=== PATIENT | male | born 1965 | race Caucasian/White ===

== ENCOUNTER 2017-12-01 22:05 | Inpatient (IN) ==
[2017-12-02] MEDS ORDERED: ALBUTEROL/IPRATROPIUM 3 ML NEB RESP TX STA (00:11)
[2017-12-02] MEDS ORDERED: methylPREDNISolone SOD SUC 125 MG/2 ML VIAL IV STA (00:11)
[2017-12-02] MEDS ORDERED: PANTOPRAZOLE 40 MG VIAL IV STA (00:11)
[2017-12-02] MEDS ORDERED: METOCLOPRAMIDE 10 MG/2 ML VIAL IV STA (00:11)
[2017-12-02] MEDS ORDERED: ALUM/MAG/SIMETH/LIDO VISC 1:1 30 ML BOTTLE PO STA (00:11)
[2017-12-02 01:49] LABS: Troponin I Only < 0.015 NG/ML (0.00-0.045)
[2017-12-02] MEDS ORDERED: FUROSEMIDE 40 MG/4 ML VIAL IV STA (02:03)
[2017-12-02] MEDS ORDERED: ONDANSETRON 4 MG/2 ML VIAL IV PRN (05:03)
[2017-12-02] MEDS ORDERED: ACETAMINOPHEN 325 MG TABLET PO PRN (05:03)
[2017-12-02] MEDS ORDERED: ALBUTEROL/IPRATROPIUM 3 ML NEB RESP TX PRN (05:10)
[2017-12-02] MEDS: SODIUM CHLORIDE 0.9% 1,000 ML IV SCH ×2 (05:58→21:02)
[2017-12-02] MEDS: MORPHINE 4 MG/1 ML VIAL IV PRN ×3 (05:59→17:45)
[2017-12-02 07:53] LABS: INR 3.2
[2017-12-02 07:59] LABS: PT Patient Result 32.8 SECS
[2017-12-02] MEDS: VENLAFAXINE 100 MG TABLET PO SCH (08:18)
[2017-12-02] MEDS: ARIPiprazole 10 MG TABLET PO SCH (08:18)
[2017-12-02] MEDS ORDERED: ENOXAPARIN 40 MG/0.4 ML SYRINGE SUBCUT SCH (09:00)
[2017-12-02] MEDS: methylPREDNISolone SOD SUC 125 MG/2 ML VIAL IV SCH ×2 (09:38→17:29)
[2017-12-02] MEDS: PANTOPRAZOLE 40 MG VIAL IV SCH ×2 (09:39→21:00)
[2017-12-02] MEDS: LEVOFLOXACIN INJ 750 MG in PREMIX 1 EACH IV SCH (09:42)
[2017-12-02] MEDS ORDERED: WARFARIN 5 MG TABLET PO SCH (18:00)
[2017-12-02] MEDS: TOPIRAMATE 25 MG TABLET PO SCH (21:03)
[2017-12-02] MEDS: DOXEPIN 100 MG CAPSULE PO SCH (21:04)
[2017-12-02] MEDS: GABAPENTIN 400 MG CAPSULE PO SCH (21:04)
[2017-12-03] MEDS: methylPREDNISolone SOD SUC 125 MG/2 ML VIAL IV SCH ×3 (00:50→16:17)
[2017-12-03] MEDS: MORPHINE 4 MG/1 ML VIAL IV PRN ×4 (04:23→21:54)
[2017-12-03 06:54] LABS: Basophils % 0.2 % (0.0-0.8); Hematocrit 48.6 VOL% (42.0-52.0); Immature Granulocytes % 0.6 %; Immature Granulocytes Absolute 0.07 #; Lymphocytes % 8.5 % (21.2-54.2); Mean Corpuscular HGB Conc 32.9 GM/DL (32-36); Mean Corpuscular Hemoglobin 29 PG (27-34); Mean Corpuscular Volume 87.1 FL (87-102); Mean Platelet Volume 9.1 FL (9.6-12.0); Monocytes # 0.2 10*3/uL (0.11-0.8); Monocytes % 1.5 % (1.7-12.7); Neutrophils # 10.9 10*3/uL (1.4-7.4); Neutrophils % 89.2 % (38.7-73.9); Platelet Count 289 T/CUMM (130-400); Red Blood Count 5.58 MC/CUMM (3.8-5.5); Red Cell Distribution Width 18.5 % (9.3-17.3); White Blood Count 12.2 T/CUMM (4-12)
[2017-12-03 07:14] LABS: INR 3.1
[2017-12-03 07:15] LABS: PT Patient Result 31.4 SECS; Partial Thromboplastin Time 44.8 SECS (0-40)
[2017-12-03 07:17] LABS: Calcium 8.8 MG/DL (8.5-10.1); Osmolality,Calculated 276.5 MOS/KG (273-304); Potassium 4.2 MMOL/L (3.5-5.1)
[2017-12-03] MEDS: PANTOPRAZOLE 40 MG VIAL IV SCH ×2 (09:54→21:08)
[2017-12-03] MEDS: VENLAFAXINE 100 MG TABLET PO SCH (09:54)
[2017-12-03] MEDS: ARIPiprazole 10 MG TABLET PO SCH (09:54)
[2017-12-03] MEDS: LEVOFLOXACIN INJ 750 MG in PREMIX 1 EACH IV SCH (09:54)
[2017-12-03] MEDS: SODIUM CHLORIDE 0.9% 1,000 ML IV SCH (11:23)
[2017-12-03] MEDS: MUPIROCIN 2% OINT 22 GM TUBE TOP SCH (21:07)
[2017-12-03] MEDS: GABAPENTIN 400 MG CAPSULE PO SCH (21:08)
[2017-12-03] MEDS: TOPIRAMATE 25 MG TABLET PO SCH (21:09)
[2017-12-03] MEDS: DOXEPIN 100 MG CAPSULE PO SCH (21:09)
[2017-12-04] MEDS: methylPREDNISolone SOD SUC 125 MG/2 ML VIAL IV SCH ×2 (01:25→08:23)
[2017-12-04] MEDS: SODIUM CHLORIDE 0.9% 1,000 ML IV SCH ×2 (01:30→18:11)
[2017-12-04 07:28] LABS: PT Patient Result 30.5 SECS
[2017-12-04 07:45] LABS: ABG Base Excess 0.2 MMOL/L (-2.5-2.5); ABG HCO3 24.4 MMOL/L (20-26); ABG Oxygen Saturation 91.2 % (95-100); ABG PCO2 42.5 MM HG (35-48); ABG PH 7.385 (7.35-7.45); ABG PO2 62.1 MM HG (80-95); ABG TCO2 21.3 MMOL/L (23-27); Allen Test Positive; Pt O2 Delivery Device Room Air
[2017-12-04] MEDS: MORPHINE 4 MG/1 ML VIAL IV PRN ×2 (08:14→12:47)
[2017-12-04] MEDS: PANTOPRAZOLE 40 MG VIAL IV SCH ×2 (08:18→22:19)
[2017-12-04] MEDS: LEVOFLOXACIN INJ 750 MG in PREMIX 1 EACH IV SCH (08:25)
[2017-12-04] MEDS: ARIPiprazole 10 MG TABLET PO SCH ×2 (08:29→16:51)
[2017-12-04] MEDS: MUPIROCIN 2% OINT 22 GM TUBE TOP SCH ×2 (08:29→20:59)
[2017-12-04] MEDS: VENLAFAXINE 100 MG TABLET PO SCH ×2 (08:29→16:51)
[2017-12-04] MEDS ORDERED: PHYTONADIONE 5 MG/5 ML ORAL.SYR PO ONE (10:30)
[2017-12-04] MEDS: clonazePAM 0.5 MG TABLET PO PRN (15:36)
[2017-12-04] MEDS: POTASSIUM CHLORIDE INJ 30 MEQ in DEXTROSE 5% NACL 0.45% 1,000 ML IV SCH (16:52)
[2017-12-04] MEDS: GABAPENTIN 400 MG CAPSULE PO SCH (20:56)
[2017-12-04] MEDS: DOXEPIN 100 MG CAPSULE PO SCH (20:56)
[2017-12-04] MEDS: TOPIRAMATE 25 MG TABLET PO SCH (20:56)
[2017-12-05] MEDS: POTASSIUM CHLORIDE INJ 30 MEQ in DEXTROSE 5% NACL 0.45% 1,000 ML IV SCH (02:25)
[2017-12-05 04:17] LABS: INR 1.4; PT Patient Result 14.7 SECS
[2017-12-05 04:35] LABS: Calcium 8.4 MG/DL (8.5-10.1); Osmolality,Calculated 279.4 MOS/KG (273-304)
[2017-12-05] MEDS: ARIPiprazole 10 MG TABLET PO SCH (09:24)
[2017-12-05] MEDS: VENLAFAXINE 100 MG TABLET PO SCH (09:24)
[2017-12-05] MEDS: ENOXAPARIN 40 MG/0.4 ML SYRINGE SUBCUT SCH (09:25)
[2017-12-05] MEDS: NYSTATIN 500,000 UNIT/5 ML UDCUP SWISH/SWAL SCH ×4 (09:25→21:16)
[2017-12-05] MEDS: clonazePAM 0.5 MG TABLET PO PRN ×2 (09:27→21:22)
[2017-12-05] MEDS: PANTOPRAZOLE 40 MG VIAL IV SCH ×2 (09:29→22:27)
[2017-12-05] MEDS: LEVOFLOXACIN INJ 750 MG in PREMIX 1 EACH IV SCH (09:31)
[2017-12-05] MEDS: MUPIROCIN 2% OINT 22 GM TUBE TOP SCH ×2 (09:33→21:17)
[2017-12-05] MEDS: DEXTROSE 5% NACL 0.45% 1,000 ML IV SCH ×2 (11:47→22:27)
[2017-12-05] MEDS: ALUMINUM/MAGNES/SIMETH MAX STR 30 ML UDCUP PO PRN ×2 (12:55→17:14)
[2017-12-05] MEDS: DOXEPIN 100 MG CAPSULE PO SCH (21:16)
[2017-12-05] MEDS: GABAPENTIN 400 MG CAPSULE PO SCH (21:17)
[2017-12-05] MEDS: TOPIRAMATE 25 MG TABLET PO SCH (21:17)
[2017-12-06 05:09] LABS: Basophils % 0.1 % (0.0-0.8); Hematocrit 49.6 VOL% (42.0-52.0); Hemoglobin 16.5 GM/DL (14.0-18.0); Immature Granulocytes % 0.8 %; Immature Granulocytes Absolute 0.06 #; Lymphocytes # 2.2 10*3/uL (1.4-4.0); Lymphocytes % 28.9 % (21.2-54.2); Mean Corpuscular HGB Conc 33.3 GM/DL (32-36); Mean Corpuscular Hemoglobin 29 PG (27-34); Mean Corpuscular Volume 86.9 FL (87-102); Mean Platelet Volume 9.8 FL (9.6-12.0); Monocytes # 0.4 10*3/uL (0.11-0.8); Monocytes % 5.2 % (1.7-12.7); Platelet Count 300 T/CUMM (130-400); Red Blood Count 5.71 MC/CUMM (3.8-5.5); Red Cell Distribution Width 18.7 % (9.3-17.3); White Blood Count 7.6 T/CUMM (4-12)
[2017-12-06 05:28] LABS: INR 1.1; PT Patient Result 11.9 SECS
[2017-12-06 05:33] LABS: Calcium 8.3 MG/DL (8.5-10.1); Osmolality,Calculated 280.3 MOS/KG (273-304); Potassium 3.6 MMOL/L (3.5-5.1)
[2017-12-06] MEDS: ARIPiprazole 10 MG TABLET PO SCH (08:11)
[2017-12-06] MEDS: VENLAFAXINE 100 MG TABLET PO SCH (08:11)
[2017-12-06] MEDS: clonazePAM 0.5 MG TABLET PO PRN ×2 (08:11→20:31)
[2017-12-06] MEDS: PANTOPRAZOLE 40 MG VIAL IV SCH ×2 (08:12→22:26)
[2017-12-06] MEDS: NYSTATIN 500,000 UNIT/5 ML UDCUP SWISH/SWAL SCH ×4 (08:12→20:31)
[2017-12-06] MEDS: LEVOFLOXACIN INJ 750 MG in PREMIX 1 EACH IV SCH (08:15)
[2017-12-06] MEDS: ALUMINUM/MAGNES/SIMETH MAX STR 30 ML UDCUP PO PRN (08:18)
[2017-12-06] MEDS: MUPIROCIN 2% OINT 22 GM TUBE TOP SCH ×2 (08:20→20:35)
[2017-12-06] MEDS: ENOXAPARIN 40 MG/0.4 ML SYRINGE SUBCUT SCH (08:30)
[2017-12-06] MEDS: DEXTROSE 5% NACL 0.45% 1,000 ML IV SCH ×3 (09:55→21:55)
[2017-12-06] MEDS: DOXEPIN 100 MG CAPSULE PO SCH (20:32)
[2017-12-06] MEDS: TOPIRAMATE 25 MG TABLET PO SCH (20:32)
[2017-12-06] MEDS: GABAPENTIN 400 MG CAPSULE PO SCH (20:32)
[2017-12-07] MEDS: LEVOFLOXACIN INJ 750 MG in PREMIX 1 EACH IV SCH (09:54)
[2017-12-07] MEDS: ENOXAPARIN 40 MG/0.4 ML SYRINGE SUBCUT SCH (09:54)
[2017-12-07] MEDS: ARIPiprazole 10 MG TABLET PO SCH (09:55)
[2017-12-07] MEDS: PANTOPRAZOLE 40 MG VIAL IV SCH ×2 (09:55→20:40)
[2017-12-07] MEDS: clonazePAM 0.5 MG TABLET PO PRN ×2 (09:55→20:40)
[2017-12-07] MEDS: NYSTATIN 500,000 UNIT/5 ML UDCUP SWISH/SWAL SCH ×4 (09:56→20:38)
[2017-12-07] MEDS: VENLAFAXINE 100 MG TABLET PO SCH (09:56)
[2017-12-07] MEDS: DEXTROSE 5% NACL 0.45% 1,000 ML IV SCH ×2 (10:03→17:51)
[2017-12-07] MEDS: MUPIROCIN 2% OINT 22 GM TUBE TOP SCH ×2 (10:05→20:41)
[2017-12-07] MEDS: GABAPENTIN 400 MG CAPSULE PO SCH (20:40)
[2017-12-07] MEDS: TOPIRAMATE 25 MG TABLET PO SCH (20:40)
[2017-12-07] MEDS: DOXEPIN 100 MG CAPSULE PO SCH (20:41)
[2017-12-08] MEDS ORDERED: ALBUTEROL/IPRATROPIUM 3 ML NEB RESP TX PRN (07:00)
[2017-12-08] MEDS: DEXTROSE 5% NACL 0.45% 1,000 ML IV SCH ×2 (07:20→16:58)
[2017-12-08 09:36] LABS: Basophils % 0.4 % (0.0-0.8); Hematocrit 54.9 VOL% (42.0-52.0); Hemoglobin 17.4 GM/DL (14.0-18.0); Immature Granulocytes % 1.1 %; Lymphocytes # 1.6 10*3/uL (1.4-4.0); Lymphocytes % 17.3 % (21.2-54.2); Mean Corpuscular HGB Conc 31.7 GM/DL (32-36); Mean Corpuscular Hemoglobin 29 PG (27-34); Mean Platelet Volume 10.1 FL (9.6-12.0); Monocytes # 0.4 10*3/uL (0.11-0.8); Monocytes % 4.6 % (1.7-12.7); Neutrophils # 6.9 10*3/uL (1.4-7.4); Neutrophils % 76.6 % (38.7-73.9); Platelet Count 241 T/CUMM (130-400); Red Blood Count 5.97 MC/CUMM (3.8-5.5); Red Cell Distribution Width 18.9 % (9.3-17.3); White Blood Count 9.1 T/CUMM (4-12)
[2017-12-08] MEDS: LEVOFLOXACIN INJ 750 MG in PREMIX 1 EACH IV SCH (09:45)
[2017-12-08 09:49] LABS: Albumin 2.3 G/DL (3.4-5.0); Bilirubin,Total 1.1 MG/DL (0.2-1.0); Calcium 8.3 MG/DL (8.5-10.1); Osmolality,Calculated 274.4 MOS/KG (273-304); Potassium 3.6 MMOL/L (3.5-5.1); Total Protein 6.2 G/DL (6.4-8.3)
[2017-12-08] MEDS: ARIPiprazole 10 MG TABLET PO SCH (09:54)
[2017-12-08] MEDS: MUPIROCIN 2% OINT 22 GM TUBE TOP SCH ×2 (09:54→21:50)
[2017-12-08] MEDS: NYSTATIN 500,000 UNIT/5 ML UDCUP SWISH/SWAL SCH ×4 (09:54→21:36)
[2017-12-08] MEDS: PANTOPRAZOLE 40 MG VIAL IV SCH ×2 (09:54→21:37)
[2017-12-08] MEDS: VENLAFAXINE 100 MG TABLET PO SCH (09:54)
[2017-12-08 10:42] LABS: PT Patient Result 10.7 SECS
[2017-12-08] MEDS: clonazePAM 0.5 MG TABLET PO PRN ×2 (11:20→21:41)
[2017-12-08] MEDS ORDERED: fentaNYL 100 MCG/2 ML VIAL ONE (13:01)
[2017-12-08] MEDS ORDERED: LIDOCAINE 4% TOP SOLN 50 ML BOTTLE ONE (13:01)
[2017-12-08] MEDS ORDERED: GLYCOPYRROLATE 0.4 MG/2 ML VIAL ONE (13:02)
[2017-12-08] MEDS: TOPIRAMATE 25 MG TABLET PO SCH (21:36)
[2017-12-08] MEDS: DOXEPIN 100 MG CAPSULE PO SCH (21:36)
[2017-12-08] MEDS: GABAPENTIN 400 MG CAPSULE PO SCH (21:36)
[2017-12-09] MEDS: DEXTROSE 5% NACL 0.45% 1,000 ML IV SCH ×2 (02:34→15:07)
[2017-12-09] MEDS: MUPIROCIN 2% OINT 22 GM TUBE TOP SCH ×2 (07:45→21:26)
[2017-12-09] MEDS: NYSTATIN 500,000 UNIT/5 ML UDCUP SWISH/SWAL SCH ×4 (09:00→21:25)
[2017-12-09] MEDS: VENLAFAXINE 100 MG TABLET PO SCH (09:00)
[2017-12-09] MEDS: ARIPiprazole 10 MG TABLET PO SCH (09:00)
[2017-12-09] MEDS: PANTOPRAZOLE 40 MG VIAL IV SCH ×2 (09:42→21:24)
[2017-12-09] MEDS: LEVOFLOXACIN INJ 750 MG in PREMIX 1 EACH IV SCH (09:45)
[2017-12-09] MEDS ORDERED: DEXTROSE 50% 25 GM/50 ML VIAL IV ONE ×2 (11:46→12:47)
[2017-12-09] MEDS ORDERED: PROPOFOL 200 MG/20 ML VIAL IV ONE ×2 (12:53→12:54)
[2017-12-09] MEDS ORDERED: SUCCINYLCHOLINE 200 MG/10 ML VIAL ONE (12:53)
[2017-12-09] MEDS ORDERED: DESFLURANE 1 UNIT/15 MINUTE INH ONE (12:53)
[2017-12-09] MEDS ORDERED: MIDAZOLAM 2 MG/2 ML VIAL ONE (12:53)
[2017-12-09] MEDS ORDERED: fentaNYL 100 MCG/2 ML VIAL ONE (12:53)
[2017-12-09] MEDS: GABAPENTIN 400 MG CAPSULE PO SCH (21:25)
[2017-12-09] MEDS: clonazePAM 0.5 MG TABLET PO PRN (21:25)
[2017-12-09] MEDS: TOPIRAMATE 25 MG TABLET PO SCH (21:26)
[2017-12-09] MEDS: DOXEPIN 100 MG CAPSULE PO SCH (21:33)
[2017-12-10] MEDS: DEXTROSE 5% NACL 0.45% 1,000 ML IV SCH (01:15)
[2017-12-10] MEDS: VENLAFAXINE 100 MG TABLET PO SCH (09:18)
[2017-12-10] MEDS: ARIPiprazole 10 MG TABLET PO SCH (09:18)
[2017-12-10] MEDS: NYSTATIN 500,000 UNIT/5 ML UDCUP SWISH/SWAL SCH ×4 (09:18→21:02)
[2017-12-10] MEDS: PANTOPRAZOLE 40 MG VIAL IV SCH ×2 (09:18→21:02)
[2017-12-10] MEDS: MUPIROCIN 2% OINT 22 GM TUBE TOP SCH (09:18)
[2017-12-10] MEDS: clonazePAM 0.5 MG TABLET PO PRN ×2 (09:25→21:11)
[2017-12-10] MEDS ORDERED: WARFARIN 5 MG TABLET PO SCH (18:00)
[2017-12-10] MEDS: DOXEPIN 100 MG CAPSULE PO SCH (21:01)
[2017-12-10] MEDS: TOPIRAMATE 25 MG TABLET PO SCH (21:01)
[2017-12-10] MEDS: GABAPENTIN 400 MG CAPSULE PO SCH (21:01)
[2017-12-11] MEDS: MUPIROCIN 2% OINT 22 GM TUBE TOP SCH ×2 (04:03→09:30)
[2017-12-11 06:34] LABS: PT Patient Result 10.5 SECS
[2017-12-11 07:50] VITALS: BP 137/74
[2017-12-11] MEDS ORDERED: DOCUSATE SODIUM 100 MG CAPSULE PO SCH (09:00)
[2017-12-11] MEDS: NYSTATIN 500,000 UNIT/5 ML UDCUP SWISH/SWAL SCH (09:20)
[2017-12-11] MEDS: ARIPiprazole 10 MG TABLET PO SCH (09:21)
[2017-12-11] MEDS: PANTOPRAZOLE 40 MG VIAL IV SCH (09:21)
[2017-12-11] MEDS: VENLAFAXINE 100 MG TABLET PO SCH (09:21)
[2017-12-11] MEDS: clonazePAM 0.5 MG TABLET PO PRN (09:29)
[2017-12-11] MEDS: ENOXAPARIN 40 MG/0.4 ML SYRINGE SUBCUT SCH (09:30)
== END 2017-12-11 11:35 | disposition home or self-care (01) | DRG 375 ==
LOC: N.ED 22:05 → N.EDINP 12-02 03:18 → SUATTDRO 12-02 03:18 → N.2E 12-02 04:43 → N.CC 12-09 13:39 → N.2E 12-10 15:17
PROVIDERS: ADMIT Internal Medicine; ATTEND Internal Medicine